=== PATIENT | female | born 1980 | race Caucasian/White ===

== ENCOUNTER 2020-07-20 13:40 | Day surgery (SDC) | payer OTHER ==
[~2020-07-20] VITALS: Ht 157.5 cm; Wt 74.2 kg
[2020-07-20 14:52] VITALS: BP 127/76; PULSE 93; TEMP 98
[2020-07-20] MEDS ORDERED: NORCO 325 MG-101 TAB PO (15:11)
[2020-07-20] MEDS ORDERED: ATIVAN 0.50.5 MG/TAB PO (15:11)
[2020-07-20] MEDS ORDERED: SYNTHROID0.05 MG/TA PO (15:12)
[2020-07-20] MEDS ORDERED: FLEXERIL 1010 MG/TAB PO (15:13)
[2020-07-20] MEDS ORDERED: LIPITOR 10MG10 MG PO (15:13)
[2020-07-20] MEDS ORDERED: TAGAMET300 MG PO (15:14)
[2020-07-20] MEDS ORDERED: NEURONTIN600 MG/TAB PO (15:15)
[2020-07-20] MEDS ORDERED: VALTREX 50500 MG/TAB PO (15:15)
[2020-07-20] MEDS ORDERED: INDOCIN50 MG PO (15:16)
[2020-07-20] MEDS ORDERED: PROTONIX 40MG T40 MG PO (15:16)
--- NOTE | 2020-07-20 15:18 | NUR ---
TO RM 8 AT 1420- CALL LIGHT IN REACH MOTHER AT BEDSIDE
--- NOTE | 2020-07-20 15:20 | NUR ---
TALKED TO MARGARETH AFTER SCHOOL PROGRAM COORDINATOR, OK TO NOT START CUBING MACHINE TENDER AND TO GIVE MORPHINE 4MG IV
--- NOTE | 2020-07-20 15:45 | NUR ---
RECEIVED MORPHINE 4MG IV AND ZOFRAN 4MG . I ALSO TALKED TO DR TILLMAN -OK'D TO NOT START LOGISTICS PROJECT MANAGER. DR CAMPOS INTOT TALK TO PATIENT AND HER MOTHER.
--- NOTE | 2020-07-20 15:46 | NUR ---
MARGARETH CLOTHING SALES ASSISTANT - TO TALK TO PATIENT
--- NOTE | 2020-07-20 15:55 | NUR ---
STRAINED 300CC LIGHT YELLOW URINE- NO STONES NOTED
--- NOTE | 2020-07-20 16:20 | NUR ---
PATIENT STATED PAIN IS "SOME BETTER"
--- NOTE | 2020-07-20 17:59 | NUR ---
PATIENT CALLED STATED THE PAIN HAS GOTTON WORSE. DR TILLMAN NOTIFIED. NO NEW ORDERS, PATIENT WOULD BE GOING BACK TO [place] SOON.
[2020-07-20 19:30] VITALS: BP 111/74; PULSE 103; TEMP 97.7
[2020-07-20 19:45] VITALS: BP 119/81; PULSE 98; TEMP 97.9
[2020-07-20 20:00] VITALS: BP 122/73; PULSE 91
[2020-07-20 20:15] VITALS: BP 115/71; PULSE 88
[2020-07-20 20:45] VITALS: BP 115/73; PULSE 85
--- NOTE | 2020-07-20 21:03 | NUR ---
INT discontinued to left hand. Vital signs stable. Patient able to eat and drink with no nausea. Discharge instructions given to patient. Questions answered. Denies acute pain. Patient assisted to personal vehicle with mother at [id number].
--- NOTE | 2020-07-20 21:04 | NUR ---
Paper perscriptions given.
== END 2020-07-20 20:45 | disposition home or self-care (01) ==
LOC: SDCO 13:40 → SURG 20:16 → SDCO 20:45
DX: N13.2 Hydronephrosis with renal and ureteral calculous obstruction (principal); B19.20 Unspecified viral hepatitis C without hepatic coma; F17.210 Nicotine dependence, cigarettes, uncomplicated; K21.9 Gastro-esophageal reflux disease without esophagitis; E07.9 Disorder of thyroid, unspecified; G89.29 Other chronic pain; E78.5 Hyperlipidemia, unspecified; F41.9 Anxiety disorder, unspecified; Z90.711 Acquired absence of uterus with remaining cervical stump; Z86.19 Personal history of other infectious and parasitic diseases; Z80.0 Family history of malignant neoplasm of digestive organs; Z83.3 Family history of diabetes mellitus; Z82.49 Family history of ischemic heart disease and other diseases of the circulatory system; Z79.899 Other long term (current) drug therapy; Z98.1 Arthrodesis status; Z88.1 Allergy status to other antibiotic agents
CPT/HCPCS: OP; C1769; C1894; C2617; J0690; J1100; J1885; J2270; J2405; J2704; J3010; J7030; Q9967